=== PATIENT | male | born 1995 | race Caucasian/White ===

== ENCOUNTER 2021-06-23 23:28 | Emergency (ER) | payer BC, SELFPAY ==
[2021-06-23 23:31] VITALS: BP 104/56; PULSE 117; RESP 19; O2SAT 100; BMI 53.8
[2021-06-24] VITALS (9 sets, daily range): BP systolic 84–126; BP diastolic 47–76; PULSE 88–111; RESP 14–30; O2SAT 91–97
--- NOTE | 2021-06-24 00:08 | XRR_ITS ---
PROCEDURE INFORMATION: Exam: XR Chest Exam date and time: 06/24/2021 12:08 AM Age: 26 years old Clinical indication: Injury or trauma; Other: Cow head hit chest; Blunt trauma (contusions or hematomas); Additional info: SOB TECHNIQUE: Imaging protocol: XR of the chest. Views: 1 view. COMPARISON: No relevant prior studies available. FINDINGS: Lungs: Unremarkable. No consolidation. Pleural spaces: Unremarkable. No pleural effusion. No pneumothorax. Heart/Mediastinum: Unremarkable. No cardiomegaly. Bones/joints: Unremarkable. XR/XR chest 1V portable [id number] IMPRESSION: No acute findings.
--- NOTE | 2021-06-24 00:29 | CTR_ITS ---
PROCEDURE INFORMATION: Exam: CT Chest With Contrast; Diagnostic Exam date and time: 06/24/2021 12:29 AM Age: 26 years old Clinical indication: Injury or trauma; Fall; Lower; Blunt trauma (contusions or hematomas); Injury details: Bruising and abrasions to left flank; Additional info: Trauma-cow stepped on left flank and cow head hit chest TECHNIQUE: Imaging protocol: Diagnostic computed tomography of the chest with contrast. Radiation optimization: All CT scans at this facility use at least one of these dose optimization techniques: automated exposure control; mA and/or kV adjustment per patient size (includes targeted exams where dose is matched to clinical indication); or iterative reconstruction. Contrast material: OMNI 300; Contrast volume: 95 ml; Contrast route: INTRAVENOUS (IV); COMPARISON: CR (CHEST, ) 06/24/2021 12:29 AM RADIATION DOSE METRICS: Total DLP (mGy-cm): 2905.58 FINDINGS: Lungs: Unremarkable. No consolidation. No masses. Pleural spaces: Unremarkable. No pneumothorax. No pleural effusion. Heart: Unremarkable. No cardiomegaly. No pericardial effusion. Aorta: Unremarkable. No aortic aneurysm. Lymph nodes: Unremarkable. No enlarged lymph nodes. Bones/joints: Probable right lower posterior rib resection noted. No acute thoracic fractures. Soft tissues: Postsurgical material within the right posterior chest wall intercostal muscles. No acute soft tissue abnormality of chest wall identified. PROCEDURE INFORMATION: Exam: CT Abdomen And Pelvis With Contrast Exam date and time: 06/24/2021 12:29 AM Age: 26 years old Clinical indication: Injury or trauma; Fall; Lower; Blunt trauma (contusions or hematomas); Injury details: Bruising and abrasions to left flank; Additional info: Trauma-cow stepped on left flank and cow head hit chest TECHNIQUE: Imaging protocol: Computed tomography of the abdomen and pelvis with contrast. Radiation optimization: All CT scans at this facility use at least one of these dose optimization techniques: automated exposure control; mA and/or kV adjustment per patient size (includes targeted exams where dose is matched to clinical indication); or iterative reconstruction. Contrast material: OMNI 300; Contrast volume: 95 ml; Contrast route: INTRAVENOUS (IV); COMPARISON: CR (CHEST, ) 06/24/2021 12:29 AM RADIATION DOSE METRICS: Total DLP (mGy-cm): 2905.58 FINDINGS: Liver: Normal. No mass. Gallbladder and bile ducts: Normal. No calcified stones. No ductal dilation. Pancreas: Normal. No ductal dilation. Spleen: Normal. No splenomegaly. Adrenal glands: Normal. No mass. Kidneys and ureters: Normal. No hydronephrosis. Stomach and bowel: Unremarkable. No obstruction. No mucosal thickening. Appendix: No evidence of appendicitis. Intraperitoneal space: Unremarkable. No free air. No significant fluid collection. Vasculature: Unremarkable. No abdominal aortic aneurysm. Lymph nodes: Unremarkable. No enlarged lymph nodes. Urinary bladder: Unremarkable as visualized. Reproductive: Unremarkable as visualized. Bones/joints: Unremarkable. No acute fracture. Soft tissues: Fat containing umbilical hernia. Abdominal wall soft tissues are unremarkable. CT/CT chest abd pel w con* IMPRESSION: Negative for acute thoracic injury. IMPRESSION: Negative for acute abdominopelvic injury.
--- NOTE | 2021-06-24 00:29 | CTR_ITS ---
PROCEDURE INFORMATION: Exam: CT Head Without Contrast Exam date and time: 06/24/2021 12:29 AM Age: 26 years old Clinical indication: Injury or trauma; Fall; Blunt trauma (contusions or hematomas); Without loss of consciousness; Additional info: Trauma-knocked over by cow and hit head. -loc TECHNIQUE: Imaging protocol: Computed tomography of the head without contrast. Radiation optimization: All CT scans at this facility use at least one of these dose optimization techniques: automated exposure control; mA and/or kV adjustment per patient size (includes targeted exams where dose is matched to clinical indication); or iterative reconstruction. COMPARISON: No relevant prior studies available. RADIATION DOSE METRICS: Total DLP (mGy-cm): 904.49 FINDINGS: Brain: Normal. No hemorrhage. Unremarkable white matter. No mass effect. Cerebral ventricles: No ventriculomegaly. Paranasal sinuses: Mucosal thickening in the ethmoid, sphenoid and maxillary sinuses. Mastoid air cells: Visualized mastoid air cells are well aerated. Bones/joints: Unremarkable. No acute fracture. Soft tissues: Unremarkable. CT/CT head wo con* [id number] IMPRESSION: No acute intracranial injury.
--- NOTE | 2021-06-24 00:34 | W.ED.TRAUMA ---
Documented by User: PRAMOD Cadena 06/24/21 17:03 HPI - Trauma General: Chief Complaint: Trauma Stated Complaint: Injury SOB Cow Time Seen by Provider: 06/24/21 00:23 History of Present Illness: HPI narrative: Patient is a 26-year-old male comes to the ED with abdominal and chest pain after trauma. 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 Denies any loss of consciousness does admit to having a headache. The cow charged him and stepped on his left flank area. Since injury he is having pain in his chest and and left flank. He says it hurts to breathe and he is also having some nausea and vomiting as well that started within the last 30 to 45 minutes. He also describes feeling very tired and weak. Associated symptoms: Reports abdominal pain (left flank), chest pain (pleuritic chest pain), headache(s), nausea and vomiting; Denies back pain, chills or fever(s) Review of Systems Const: Denies: fever(s), chills or fatigue Eyes: Denies: change in vision or eye discomfort ENMT: Denies: throat pain, odynophagia, nasal discharge or nasal congestion Card: Reports: chest pain (pleuritic chest pain); Denies: palpitations, edema, swelling of feet/ankles, dyspnea on exertion or orthopnea Resp: Reports: pain on inspiration; Denies: dyspnea, productive cough or non-productive cough GI: Reports: abdominal pain (left flank), nausea and vomiting; Denies: diarrhea, constipation or hematochezia : Denies: flank pain, difficulty urinating, dysuria or hematuria Musc: Denies: neck pain, back pain or extremity swelling Skin/Breast: Denies: rash or new lesions Neuro: Reports: headache(s); Denies: numbness in extremities or weakness in extremities Physical Exam Const: COMMON NORMALS: patient oriented x3 and alert GENERAL APPEARANCE: cooperative, in distress, lethargic and ill appearing NUTRITIONAL APPEARANCE: obese ORIENTATION/CONSCIOUSNESS: Yes lethargic OTHER: Patient is ill-appearing a little lethargic and pale-colored. HENMT: COMMON NORMALS: normocephalic HEAD & SCALP: normocephalic MOUTH: Normal oral and palatal mucosa present THROAT: posterior oropharynx normal and uvula midline Eye: COMMON NORMALS: Equal, round and reactive pupils present and conjunctivae normal CONJUNCTIVA: Yes conjunctivae normal PUPIL: Yes Equal, round and reactive pupils present Neck/C-Spine: COMMON NORMALS: supple GENERAL: Yes normal visual inspection Resp: COMMON NORMALS: normal respiratory effort, No retractions, No use of accessory muscles and clear to auscultation bilaterally AUSCULTATION: clear to auscultation bilaterally Cardio: COMMON NORMALS: regular rate, regular rhythm, S1 normal heart sound present, S2 normal heart sound present, No gallops present (Cardio), No clicks present (Cardio), No murmurs present (Cardio) and Peripheral pulses 2+ throughout RATE: regular rate RHYTHM: regular rhythm HEART SOUNDS: S1 normal heart sound present and S2 normal heart sound present PERIPHERAL PULSES: Peripheral pulses 2+ throughout GI: COMMON NORMALS: Normal to inspection, nondistended, normoactive bowel sounds present, Soft to palpation, non-tender and no masses PALPATION: Yes Soft to palpation OTHER: Left flank abrasion with some bruising swelling noted. : COMMON NORMALS: Yes no CVA tenderness BLADDER/KIDNEY EXAM: Yes no CVA tenderness Back/Pelvis: COMMON NORMALS: no CVA tenderness Neuro: COMMON NORMALS: patient oriented x3 SENSORIUM/ORIENTATION: Yes alert and Yes lethargic Skin: GENERAL SKIN EXAM: dry skin Course Vital Signs: Vital signs: Vital Signs Pulse Rate 88 06/24/21 04:18 Respiratory Rate 18 06/24/21 03:29 Blood Pressure 120/68 06/24/21 04:18 Pulse Oximetry 95 06/24/21 04:18 MDM - Trauma MDM Narrative: Medical decision making narrative: I went in and performed the initial history and physical exam on patient. Patient was complaining of chest pain and some left flank and back pain after he was head butted in the chest by cow and then it stopped on his left flank area. Patient did not appear well when I went in the room he was a little pale and his blood pressure was 84/63. He was able to answer my questions accordingly. After exam patient I went over and talked with Dr. Arceo told him about patient case and he came over immediately to do an evaluation on patient. Dr. Arceo is also following patient with me due to possible acuity of patient. Lab Data: Attestation: I reviewed the patient's lab results. Labs: Lab Results 06/24/21 06/24/21 06/24/21 00:28 00:28 00:30 WBC 25.0 10^3/uL H 10 ^3/uL (4.0-10.0) RBC 5.45 10^6/uL H 10 ^6/uL (4.1-5.3) Hgb 16.4 g/dL g/dL (11.7-16.6) Hct 48.4 % % (42.0-52.0) MCV 88.8 fl fl (80-94) MCH 30.1 pg pg (28.0-34.0) MCHC 33.9 g/dL g/dL (30.0-36.0) RDW 14.6 % % (12.1-15.1) Plt Count 430 10^3/cmm H 10 ^3/cmm (130-400) MPV 10.3 fL fL (7.4-10.4) Neut % (Auto) 72.2 % % Lymph % (Auto) 18.2 % % Antelope % (Auto) 7.7 % % Eos % (Auto) 0.8 % % Baso % (Auto) 0.2 % % Neut # (Auto) 18.02 10^3/uL H 1 0^3/uL (1.8-7.7) Lymph # (Auto) 4.5 10^3/uL 10^3/ uL (0.8-4.8) Antelope # (Auto) 1.9 10^3/uL H 10^ 3/uL (0.2-0.9) Eos # (Auto) 0.2 10^3/uL 10^3/ uL (0.0-0.8) Baso # (Auto) 0.1 10^3/uL 10^3/ uL (0.0-0.1) Nucleated RBC % (a uto) 0 % % Nucleated RBCs # 0.0 /100WBC /100W BC Sodium 134 mmol/L L mmol /L (136-145) Potassium 4.3 mmol/L mmol/L (3.5-5.1) Chloride 93 mmol/L L mmol/ L (98-107) Carbon Dioxide 19 mmol/L L mmol/ L (22-29) Anion Gap 26.3 H (5-19) BUN 26 mg/dL H mg/dL (6-20) Creatinine 2.2 mg/dL H mg/dL (0.7-1.2) GFR Calculation 36.1 mL/min L mL/ min (90-130) Glucose 112 mg/dL mg/dL (65-115) Calculated Osmolal ity 284 mOsm/kg L mOs m/kg (285-295) Lactic Acid 3.3 mmol/L H mmol /L (0.5-2.2) Calcium 9.0 mg/dL mg/dL (8.5-10.5) Total Bilirubin 0.3 mg/dL mg/dL (0.15-1.2) AST 34 U/L U/L (0-40) ALT 71 U/L H U/L (0-41) Alkaline Phosphata se 96 IU/L IU/L (40-130) Total Protein 7.8 g/dL g/dL (6.6-8.7) Albumin 4.3 g/dL g/dL (3.5-5.2) Globulin 3.5 g/dL g/dL (1.3-4.6) Blood Type Rho(D) Type Antibody Screen Crossmatch 06/24/21 00:30 WBC RBC Hgb Hct MCV MCH MCHC RDW Plt Count MPV Neut % (Auto) Lymph % (Auto) Antelope % (Auto) Eos % (Auto) Baso % (Auto) Neut # (Auto) Lymph # (Auto) Antelope # (Auto) Eos # (Auto) Baso # (Auto) Nucleated RBC % (a uto) Nucleated RBCs # Sodium Potassium Chloride Carbon Dioxide Anion Gap BUN Creatinine GFR Calculation Glucose Calculated Osmolal ity Lactic Acid Calcium Total Bilirubin AST ALT Alkaline Phosphata se Total Protein Albumin Globulin Blood Type O Negative Rho(D) Type Negative Antibody Screen Negative Crossmatch See Detail Imaging Data^: CT Head: Attestation: I personally reviewed and interpreted this imaging study as follows: Radiologist's impression: [facility] [address] [address] Scan Report Signed Patient: MiguelmaraClaudio Peres Unit #: [id number] : 1995 Age/Sex: 26 / M ADM Date: 06/23/21 Loc: ER Room/Bed: Attending Dr: Ordering Provider/Ordering MD: Nelson Tavera Date of Service: 06/24/21 Procedure(s): CT head wo con* [id number] Accession Number(s): [id number] Report Number: [id number] PROCEDURE INFORMATION: Exam: CT Head Without Contrast Exam date and time: 06/24/2021 12:29 AM Age: 26 years old Clinical indication: Injury or trauma; Fall; Blunt trauma (contusions or hematomas); Without loss of consciousness; Additional info: Trauma-knocked over by cow and hit head. -loc TECHNIQUE: Imaging protocol: Computed tomography of the head without contrast. Radiation optimization: All CT scans at this facility use at least one of these dose optimization techniques: automated exposure control; mA and/or kV adjustment per patient size (includes targeted exams where dose is matched to clinical indication); or iterative reconstruction. COMPARISON: No relevant prior studies available. RADIATION DOSE METRICS: Total DLP (mGy-cm): 904.49 FINDINGS: Brain: Normal. No hemorrhage. Unremarkable white matter. No mass effect. Cerebral ventricles: No ventriculomegaly. Paranasal sinuses: Mucosal thickening in the ethmoid, sphenoid and maxillary sinuses. Mastoid air cells: Visualized mastoid air cells are well aerated. Bones/joints: Unremarkable. No acute fracture. Soft tissues: Unremarkable. CT/CT head wo con* [id number] IMPRESSION: No acute intracranial injury. Dictated By: Benja Calixto MD Signed By: Benja Calixto MD Signed Date/Time: 06/24/21 0104 DD/ [address]: Attestation: I personally reviewed and interpreted this imaging study as follows: Radiologist's impression: [address] [address] [address] Scan Report Signed Patient: Claudio Cash Unit #: [id number] : 1995 Age/Sex: 26 / M ADM Date: 06/23/21 Loc: ER Room/Bed: Attending Dr: Ordering Provider/Ordering MD: Nelson Tavera Date of Service: 06/24/21 Procedure(s): CT cervical spin wo con* [id number] Accession Number(s): [id number] Report Number: [id number] PROCEDURE INFORMATION: Exam: CT Cervical Spine Without Contrast Exam date and time: 06/24/2021 12:33 AM Age: 26 years old Clinical indication: Injury or trauma; Fall; Blunt trauma; Additional info: Trauma-hit head TECHNIQUE: Imaging protocol: Computed tomography images of the cervical spine without contrast. Radiation optimization: All CT scans at this facility use at least one of these dose optimization techniques: automated exposure control; mA and/or kV adjustment per patient size (includes targeted exams where dose is matched to clinical indication); or iterative reconstruction. COMPARISON: CT head wo con* [id number] 06/24/2021 12:46 AM RADIATION DOSE METRICS: Total DLP (mGy-cm): 1013.37 FINDINGS: Vertebrae: No acute fracture. Normal alignment. C2-C3: No significant disc protrusion. No severe spinal canal stenosis. No significant neural foraminal narrowing. C3-C4: No significant disc protrusion. No severe spinal canal stenosis. No significant neural foraminal narrowing. C4-C5: No significant disc protrusion. No severe spinal canal stenosis. No significant neural foraminal narrowing. C5-C6: No significant disc protrusion. No severe spinal canal stenosis. No significant neural foraminal narrowing. C6-C7: No significant disc protrusion. No severe spinal canal stenosis. No significant neural foraminal narrowing. C7-T1: No significant disc protrusion. No severe spinal canal stenosis. No significant neural foraminal narrowing. Soft tissues: Unremarkable. Lungs: Lung apices are normal. CT/CT cervical spin wo con* [id number] IMPRESSION: No acute findings. Dictated By: Benja Calixto MD Signed By: Benja Calixto MD Signed Date/Time: 06/24/21104 DD/ 003 CT Abd/Pel: Attestation: I personally reviewed and interpreted this imaging study as follows: Radiologist's impression: [address] [address] [address] Scan Report Signed Patient: Claudio Cash Unit #: [id number] : 1995 Age/Sex: 26 / M ADM Date: 06/23/21 Loc: ER Room/Bed: Attending Dr: Ordering Provider/Ordering MD: Nelson Tavera Date of Service: 06/24/21 Procedure(s): CT chest abd pel w con* Accession Number(s): [id number] Report Number: [id number] PROCEDURE INFORMATION: Exam: CT Chest With Contrast; Diagnostic Exam date and time: 06/24/2021 12:29 AM Age: 26 years old Clinical indication: Injury or trauma; Fall; Lower; Blunt trauma (contusions or hematomas); Injury details: Bruising and abrasions to left flank; Additional info: Trauma-cow stepped on left flank and cow head hit chest TECHNIQUE: Imaging protocol: Diagnostic computed tomography of the chest with contrast. Radiation optimization: All CT scans at this facility use at least one of these dose optimization techniques: automated exposure control; mA and/or kV adjustment per patient size (includes targeted exams where dose is matched to clinical indication); or iterative reconstruction. Contrast material: OMNI 300; Contrast volume: 95 ml; Contrast route: INTRAVENOUS (IV); COMPARISON: CR (CHEST, ) 06/24/2021 12:29 AM RADIATION DOSE METRICS: Total DLP (mGy-cm): 2905.58 FINDINGS: Lungs: Unremarkable. No consolidation. No masses. Pleural spaces: Unremarkable. No pneumothorax. No pleural effusion. Heart: Unremarkable. No cardiomegaly. No pericardial effusion. Aorta: Unremarkable. No aortic aneurysm. Lymph nodes: Unremarkable. No enlarged lymph nodes. Bones/joints: Probable right lower posterior rib resection noted. No acute thoracic fractures. Soft tissues: Postsurgical material within the right posterior chest wall intercostal muscles. No acute soft tissue abnormality of chest wall identified. PROCEDURE INFORMATION: Exam: CT Abdomen And Pelvis With Contrast Exam date and time: 06/24/2021 12:29 AM Age: 26 years old Clinical indication: Injury or trauma; Fall; Lower; Blunt trauma (contusions or hematomas); Injury details: Bruising and abrasions to left flank; Additional info: Trauma-cow stepped on left flank and cow head hit chest TECHNIQUE: Imaging protocol: Computed tomography of the abdomen and pelvis with contrast. Radiation optimization: All CT scans at this facility use at least one of these dose optimization techniques: automated exposure control; mA and/or kV adjustment per patient size (includes targeted exams where dose is matched to clinical indication); or iterative reconstruction. Contrast material: OMNI 300; Contrast volume: 95 ml; Contrast route: INTRAVENOUS (IV); COMPARISON: CR (CHEST, ) 06/24/2021 12:29 AM RADIATION DOSE METRICS: Total DLP (mGy-cm): 2905.58 FINDINGS: Liver: Normal. No mass. Gallbladder and bile ducts: Normal. No calcified stones. No ductal dilation. Pancreas: Normal. No ductal dilation. Spleen: Normal. No splenomegaly. Adrenal glands: Normal. No mass. Kidneys and ureters: Normal. No hydronephrosis. Stomach and bowel: Unremarkable. No obstruction. No mucosal thickening. Appendix: No evidence of appendicitis. Intraperitoneal space: Unremarkable. No free air. No significant fluid collection. Vasculature: Unremarkable. No abdominal aortic aneurysm. Lymph nodes: Unremarkable. No enlarged lymph nodes. Urinary bladder: Unremarkable as visualized. Reproductive: Unremarkable as visualized. Bones/joints: Unremarkable. No acute fracture. Soft tissues: Fat containing umbilical hernia. Abdominal wall soft tissues are unremarkable. CT/CT chest abd pel w con* IMPRESSION: Negative for acute thoracic injury. IMPRESSION: Negative for acute abdominopelvic injury. Dictated By: Theron Caballero Signed By: Theron Caballero Signed Date/Time: 06/24/21128 DD/ Discharge Plan Discharge Patient Disposition: Home Clinical Impression: Abdominal contusion Qualifiers: Encounter type: initial encounter Qualified Code(s): S30.1XXA - Contusion of abdominal wall, initial encounter Condition: Stable Prescriptions: New Percocet 7.5-325 mg tablet 1 tab PO Q6H PRN (Reason: pain) Qty: 10 RF: 0 Discharge Orders: Discharge ED (Routine); Ordered 06/24/21 Ordered By: Harish Arceo Discharge Diet: Advance as tolerated Discharge Activity: Increase activity as tolerated Patient Instructions: Contusion in Adults (ED), Abdominal Pain (ED), Opioid Safety Activity Restrictions/Additional Instructions: Return to the emergency room for worsening pain despite treatment, worsening shortness of breath, fever greater than 100, vomiting liquids or medications, mental status changes, any other concerning symptoms. Coding Level of Care Code ED Latex Caster for Chg Fwd Exam Comprehensive Documented by User: Harish Damon Adis, 06/24/21 05:24 HPI - Trauma General: Chief Complaint: Trauma Stated Complaint: Injury SOB Cow Time Seen by Provider: 06/24/21 00:23 Course Vital Signs: Vital signs: Vital Signs Pulse Rate 88 06/24/21 04:18 Respiratory Rate 18 06/24/21 03:29 Blood Pressure 120/68 06/24/21 04:18 Pulse Oximetry 95 06/24/21 04:18 MDM - Trauma MDM Narrative: Medical decision making narrative: This patient was originally seen by Mr. Ayse PA-C. I agree with his history, evaluation, and treatment. I have seen this patient as well. Upon my evaluation, he is mildly pale, diaphoretic. He is still alert. His blood pressure was in the 80s systolic. His next blood pressure was 95 systolic. He is sent straight to CT of the head cervical spine chest abdomen pelvis due to severity of injury potentially. His hemoglobin is 16.4. His head and C-spine are negative by CT at this point. His chest x-ray does not reveal any pneumothorax, hemothorax, etc. Awaiting CT of the chest abdomen pelvis. The patient has received a liter of fluid by pressure bag. Trauma blood is in the room. Patient was given a saline bolus, blood pressure normalized following this. Blood was not used. Besides his pain, other symptoms essentially resolved. Head CT is negative. Cervical spine CT is negative. CT of the chest abdomen pelvis do not reveal any acute abnormality. He does have a white blood cell count of 25, likely from stress of injury. His creatinine is 2.2. He was allowed home with pain control to return for any worsening symptoms Lab Data: Labs: Lab Results 06/24/21 06/24/21 06/24/21 00:28 00:28 00:30 WBC 25.0 10^3/uL H 10 ^3/uL (4.0-10.0) RBC 5.45 10^6/uL H 10 ^6/uL (4.1-5.3) Hgb 16.4 g/dL g/dL (11.7-16.6) Hct 48.4 % % (42.0-52.0) MCV 88.8 fl fl (80-94) MCH 30.1 pg pg (28.0-34.0) MCHC 33.9 g/dL g/dL (30.0-36.0) RDW 14.6 % % (12.1-15.1) Plt Count 430 10^3/cmm H 10 ^3/cmm (130-400) MPV 10.3 fL fL (7.4-10.4) Neut % (Auto) 72.2 % % Lymph % (Auto) 18.2 % % Antelope % (Auto) 7.7 % % Eos % (Auto) 0.8 % % Baso % (Auto) 0.2 % % Neut # (Auto) 18.02 10^3/uL H 1 0^3/uL (1.8-7.7) Lymph # (Auto) 4.5 10^3/uL 10^3/ uL (0.8-4.8) Antelope # (Auto) 1.9 10^3/uL H 10^ 3/uL (0.2-0.9) Eos # (Auto) 0.2 10^3/uL 10^3/ uL (0.0-0.8) Baso # (Auto) 0.1 10^3/uL 10^3/ uL (0.0-0.1) Nucleated RBC % (a uto) 0 % % Nucleated RBCs # 0.0 /100WBC /100W BC Sodium 134 mmol/L L mmol /L (136-145) Potassium 4.3 mmol/L mmol/L (3.5-5.1) Chloride 93 mmol/L L mmol/ L (98-107) Carbon Dioxide 19 mmol/L L mmol/ L (22-29) Anion Gap 26.3 H (5-19) BUN 26 mg/dL H mg/dL (6-20) Creatinine 2.2 mg/dL H mg/dL (0.7-1.2) GFR Calculation 36.1 mL/min L mL/ min (90-130) Glucose 112 mg/dL mg/dL (65-115) Calculated Osmolal ity 284 mOsm/kg L mOs m/kg (285-295) Lactic Acid 3.3 mmol/L H mmol /L (0.5-2.2) Calcium 9.0 mg/dL mg/dL (8.5-10.5) Total Bilirubin 0.3 mg/dL mg/dL (0.15-1.2) AST 34 U/L U/L (0-40) ALT 71 U/L H U/L (0-41) Alkaline Phosphata se 96 IU/L IU/L (40-130) Total Protein 7.8 g/dL g/dL (6.6-8.7) Albumin 4.3 g/dL g/dL (3.5-5.2) Globulin 3.5 g/dL g/dL (1.3-4.6) Blood Type Rho(D) Type Antibody Screen Crossmatch 06/24/21 00:30 WBC RBC Hgb Hct MCV MCH MCHC RDW Plt Count MPV Neut % (Auto) Lymph % (Auto) Antelope % (Auto) Eos % (Auto) Baso % (Auto) Neut # (Auto) Lymph # (Auto) Antelope # (Auto) Eos # (Auto) Baso # (Auto) Nucleated RBC % (a uto) Nucleated RBCs # Sodium Potassium Chloride Carbon Dioxide Anion Gap BUN Creatinine GFR Calculation Glucose Calculated Osmolal ity Lactic Acid Calcium Total Bilirubin AST ALT Alkaline Phosphata se Total Protein Albumin Globulin Blood Type O Negative Rho(D) Type Negative Antibody Screen Negative Crossmatch See Detail Discharge Plan Discharge Patient Disposition: Home Clinical Impression: Abdominal contusion Qualifiers: Encounter type: initial encounter Qualified Code(s): S30.1XXA - Contusion of abdominal wall, initial encounter Condition: Stable Prescriptions: New Percocet 7.5-325 mg tablet 1 tab PO Q6H PRN (Reason: pain) Qty: 10 RF: 0 Discharge Orders: Discharge ED (Routine); Ordered 06/24/21 Ordered By: Harish Arceo Discharge Diet: Advance as tolerated Discharge Activity: Increase activity as tolerated Patient Instructions: Contusion in Adults (ED), Abdominal Pain (ED), Opioid Safety Activity Restrictions/Additional Instructions: Return to the emergency room for worsening pain despite treatment, worsening shortness of breath, fever greater than 100, vomiting liquids or medications, mental status changes, any other concerning symptoms. Coding Level of Care Code ED Latex Caster for Chg Fwd Exam Comprehensive
[2021-06-24 00:44] LABS: Basophils # 0.1 10^3/uL (0.0-0.1); Basophils % 0.2 %; Eosinophils # 0.2 10^3/uL (0.0-0.8); Eosinophils % 0.8 %; Hematocrit 48.4 % (42.0-52.0); Hemoglobin 16.4 g/dL (11.7-16.6); Lymphocytes # 4.5 10^3/uL (0.8-4.8); Lymphocytes % 18.2 %; Mean Corpuscular HGB Conc 33.9 g/dL (30.0-36.0); Mean Corpuscular Hemoglobin 30.1 pg (28.0-34.0); Mean Corpuscular Volume 88.8 fl (80-94); Mean Platelet Volume 10.3 fL (7.4-10.4); Monocytes # 1.9 10^3/uL (0.2-0.9); Monocytes % 7.7 %; Neutrophils # 18.02 10^3/uL (1.8-7.7); Neutrophils % 72.2 %; Nucleated Red Blood Cells % 0 %; Platelet Count 430 10^3/cmm (130-400); Red Blood Count 5.45 10^6/uL (4.1-5.3); Red Cell Distribution Width 14.6 % (12.1-15.1)
[2021-06-24] MEDS: sodium chloride 0.9% 1,000 ML 999 ML IV ×3 (00:45→02:31)
[2021-06-24] MEDS: iohexol 300 mg/mL 100 mL Btl IV (01:09)
[2021-06-24 01:19] LABS: Alanine Aminotransferase 71 U/L (0-41); Albumin Level 4.3 g/dL (3.5-5.2); Alkaline Phosphatase 96 IU/L (40-130); Blood Urea Nitrogen 26 mg/dL (6-20); Carbon Dioxide 19 mmol/L (22-29); Chloride 93 mmol/L (98-107); Globulin 3.5 g/dL (1.3-4.6); Glomerular Filtration Rate 36.1 mL/min (90-130); Glucose 112 mg/dL (65-115); Osmolality Calculated 284 mOsm/kg (285-295); Sodium 134 mmol/L (136-145); Total Bilirubin 0.3 mg/dL (0.15-1.2); Total Protein 7.8 g/dL (6.6-8.7)
[2021-06-24 01:20] LABS: Lactic Sepsis W/Reflex 3.3 mmol/L (0.5-2.2)
[2021-06-24 01:21] LABS: Anion Gap 26.3 (5-19); Aspartate Amino Transferase 34 U/L (0-40); Potassium 4.3 mmol/L (3.5-5.1)
[2021-06-24] MEDS: morphine 4 mg/mL SDV 1 mL IVP (01:30)
[2021-06-24] MEDS: ondansetron 2 mg/ML SDV 2 mL 4 MG IVP (01:31)
[2021-06-24 02:51] LABS: Reflex Lactate Order REFLEX LACTIC ORDERD
[2021-06-24] MEDS: fentaNYL 50 mcg/mL INJ 2mL 100 MCG IVP (03:27)
== END 2021-06-24 04:33 | disposition home or self-care (01) ==
PROVIDERS: Physician Assistant; Emergency Provider Emergency Medicine
DX: S30.1XXA Contusion of abdominal wall, initial encounter (principal); W55.22XA Struck by cow, initial encounter
CPT/HCPCS: 70450; 71045; 71260; 72125; 74177; 80053; 83605; 85025; 86850; 86900; 86920; 96361; 96374; 96375; 99284; J2270; J2405; J3010; J7030; Q9967